=== PATIENT | male | born 1995 | race Caucasian/White ===

== ENCOUNTER → 2018-04-13 | Outpatient (CLI) | payer BC ==
[~2018-04-13] MED LIST: NAPROSYN500 MG PO; NORCO 325 MG-51 TAB PO
== END ==
LOC: COL.RAD 10:37
DX: S43.005A Unspecified dislocation of left shoulder joint, initial encounter (principal); M21.822 Other specified acquired deformities of left upper arm
CPT/HCPCS: J3301; Q9967

== ENCOUNTER → 2018-06-04 | Outpatient (CLI) | payer BC | LOC: COL.LAB 15:21 | DX: Z01.812 Encounter for preprocedural laboratory examination (principal); Z86.14 Personal history of Methicillin resistant Staphylococcus aureus infection ==